=== PATIENT | male | born 1955 | race Caucasian/White ===

== ENCOUNTER → 2021-06-23 | Outpatient (CLI) | payer OTHER | LOC: ORTHO 08:22 → MERGE 08:28 → ORTHO 13:00 | PROVIDERS: ATTEND Orthopaedic Surgery | DX: M75.101 Unspecified rotator cuff tear or rupture of right shoulder, not specified as traumatic (principal); M75.102 Unspecified rotator cuff tear or rupture of left shoulder, not specified as traumatic | CPT/HCPCS: 99213 ==

== ENCOUNTER → 2021-06-23 | Outpatient (CLI) | payer OTHER ==
--- NOTE | 2021-06-23 08:55 | Diagnostic Imaging Report ---
EXAMINATION: Right shoulder radiographs, 3 views. Left shoulder radiographs, 3 views. COMPARISON: Left shoulder radiographs June 05, 2020. HISTORY: 66-year-old male, bilateral shoulder pain. FINDINGS: The humeral heads are normally aligned relative to the glenoid bilaterally. There is calcific attenuation adjacent to the superolateral aspect of the right humeral head consistent with calcific tendinitis/bursitis. The acromioclavicular joints are normally aligned. There is chondrocalcinosis. There is no identified acute fracture. There are mild right acromioclavicular degenerative changes without undersurface osteophyte. There is productive bone formation in the region of the coracoclavicular ligament attachments which may reflect sequela of remote prior injury. The glenohumeral joint spaces are grossly well preserved. IMPRESSION: 1. Calcific attenuation adjacent to the right superolateral humeral head compatible with calcific tendinitis/bursitis. 2. Mild right acromioclavicular degenerative changes without undersurface osteophytes. 3. Productive bone formation in the region of the coracoclavicular ligament attachments bilaterally which may relate to sequela of remote prior injury. There is no widening of either acromioclavicular joint. 4. Grossly unremarkable assessment of the glenohumeral joints. Dictated by: Dictated on workstation # [id number]
== END ==
LOC: ORTHO 08:23
PROVIDERS: ATTEND Orthopaedic Surgery
DX: M19.011 Primary osteoarthritis, right shoulder (principal); M25.512 Pain in left shoulder

== ENCOUNTER → 2021-06-30 | Outpatient (CLI) | payer OTHER ==
--- NOTE | 2021-06-30 11:39 | Diagnostic Imaging Report ---
EXAMINATION: Left shoulder MRI without contrast from 06/30/2021. TECHNIQUE: Multiplanar, multisequence non contrast-enhanced MRI of the left upper extremity was accomplished. INDICATION: Left shoulder pain due to years of wear and tear. FINDINGS: The subscapularis tendon is intact. The long head of the biceps tendon lies in the bicipital groove and appears intact as well. There is marked thinning of the supraspinatus and infraspinatus tendons with a focal full-thickness tear suspected along the posterior supraspinatus tendon, best seen on coronal sequences image #11. The focal tear demonstrates a gap measuring approximately 4 to 5 mm. Within the remaining predominantly articular-sided tears, bursal-sided fibers appear to be intact. There is no retraction. The biceps tendon anchor is intact. The labrum is poorly characterized without contrast but grossly intact. There is a small joint effusion. There is narrowing and spurring at the acromioclavicular joint. Muscle volume is fairly well maintained. Visualized axilla is unremarkable. IMPRESSION: 1. Predominantly articular-sided partial-thickness tears of the supraspinatus and infraspinatus tendons with a focal full-thickness extension suspected in the posterior aspect of the supraspinatus tendon. No significant retraction. 2. Subscapularis tendon and biceps tendon are intact with other findings as discussed above. Dictated by: Dictated on workstation # [id number]
== END ==
LOC: RAD 09:30
PROVIDERS: ATTEND Orthopaedic Surgery
DX: M75.102 Unspecified rotator cuff tear or rupture of left shoulder, not specified as traumatic (principal); M75.101 Unspecified rotator cuff tear or rupture of right shoulder, not specified as traumatic
CPT/HCPCS: 73221

== ENCOUNTER → 2021-07-09 | Outpatient (CLI) | payer OTHER | LOC: ORTHO 17:42 | PROVIDERS: ATTEND Orthopaedic Surgery | DX: M75.102 Unspecified rotator cuff tear or rupture of left shoulder, not specified as traumatic (principal) | CPT/HCPCS: 99213 ==

== ENCOUNTER → 2022-01-05 | Outpatient (CLI) | payer OTHER | LOC: ORTHO 08:09 | PROVIDERS: ATTEND Orthopaedic Surgery | DX: M75.102 Unspecified rotator cuff tear or rupture of left shoulder, not specified as traumatic (principal); E11.9 Type 2 diabetes mellitus without complications; E78.00 Pure hypercholesterolemia, unspecified | CPT/HCPCS: 99213 ==

== ENCOUNTER 2022-01-25 05:28 | Outpatient (CLI) | payer OTHER ==
[~2022-01-25] VITALS: Ht 180.3 cm; Wt 90.6 kg
[2022-01-25] MEDS ORDERED: ENAL20TA16 PO (14:42)
[2022-01-25] MEDS ORDERED: NF-GLIP2.5 PO (14:42)
[2022-01-25] MEDS ORDERED: ATOR10TA66 PO (14:42)
[2022-01-25] MEDS ORDERED: IBUP-1780 PO (14:42)
[2022-01-25] MEDS ORDERED: METF-399 PO (14:42)
[2022-01-25] MEDS ORDERED: GABA-486 PO (14:42)
[2022-01-25] MEDS ORDERED: CLN.2T PO (14:42)
[2022-01-25] MEDS ORDERED: HYDR25TA4 PO (14:42)
== END 2022-01-26 07:16 | disposition home or self-care (01) ==
LOC: PREOP 05:28
PROVIDERS: ATTEND Orthopaedic Surgery
DX: Z01.818 Encounter for other preprocedural examination (principal)

== ENCOUNTER → 2022-01-28 | Outpatient (CLI) | payer OTHER ==
[~2022-01-28] MED LIST: ATOR10TA66 PO; CLN.2T PO; ENAL20TA16 PO; GABA-486 PO; HYDR25TA4 PO; IBUP-1780 PO; METF-399 PO; NF-GLIP2.5 PO
== END ==
LOC: ORTHO 09:02
PROVIDERS: ATTEND Orthopaedic Surgery
DX: M75.102 Unspecified rotator cuff tear or rupture of left shoulder, not specified as traumatic (principal); E11.9 Type 2 diabetes mellitus without complications; E78.00 Pure hypercholesterolemia, unspecified; F17.200 Nicotine dependence, unspecified, uncomplicated
CPT/HCPCS: 99213

== ENCOUNTER 2022-03-01 05:29 | Outpatient (CLI) | payer OTHER ==
[~2022-03-01] VITALS: Ht 180.3 cm; Wt 91.8 kg
[2022-03-01] MEDS ORDERED: TADA5TAB4 PO (12:43)
== END 2022-03-01 13:39 | disposition home or self-care (01) ==
LOC: PREOP 05:29
PROVIDERS: ATTEND Orthopaedic Surgery
DX: Z01.818 Encounter for other preprocedural examination (principal)

== ENCOUNTER 2022-03-08 07:37 | Day surgery (SDC) | payer OTHER ==
[~2022-03-08] VITALS: Ht 180.3 cm; Wt 91.8 kg
[2022-03-08] VITALS (11 sets, daily range): BP systolic 146–173; BP diastolic 77–101
[~2022-03-08 07:37] MED LIST changes: +TADA5TAB4 PO
[2022-03-08] MEDS ORDERED: ceFAZolin INJECTION 2,000 MG in NS (IVPB) 50 ML IV ONE (08:00)
[2022-03-08] MEDS: LACTATED RINGERS 1,000 ML IV PRN ×2 (08:09→10:02)
[2022-03-08] MEDS ORDERED: EPINEPHrine INJECTION 1 MG/ML AMP ONE (08:37)
[2022-03-08] MEDS ORDERED: MIDAZOLAM 2 MG/2 ML (VERSED) VIAL ONE (08:42)
[2022-03-08] MEDS ORDERED: ROPIVACAINE 5MG/ML 30ML VIAL ONE (08:43)
[2022-03-08] MEDS ORDERED: LIDOCAINE PF 2% 5 ML (XYLOCAINE) VIAL ONE (08:43)
[2022-03-08] MEDS ORDERED: fentaNYL INJ 100 MCG/2 ML AMP ONE (09:12)
[2022-03-08] MEDS ORDERED: ONDANSETRON 4 MG/2 ML (SDV) Z0FRAN ONE (09:12)
[2022-03-08] MEDS ORDERED: ROCURONIUM 10 MG/ML 5 ML SYRINGE IV ONE (09:13)
[2022-03-08] MEDS ORDERED: proPOfol 200 MG/20 ML (DIPRIVAN) VIAL IV ONE (09:13)
[2022-03-08] MEDS ORDERED: NEOSTIGMINE 3 MG/3 ML VIAL ONE (11:30)
[2022-03-08] MEDS ORDERED: GLYCOPYRROLATE 0.2 MG/ML (ROBINUL) 2 ML VIAL ONE (11:30)
--- NOTE | 2022-03-08 11:30 | Operative Report - Ortho ---
Operative Report Surgeon (s)/[employer] Machine Operator Helper (s) Surgeon EFREN MARTIN MD [employer] Machine Operator Helper n/a Pre-Operative Diagnosis Left Rotator Cuff Tear Post-Operative Diagnosis same Operative Report Date of Procedure: Mar 08, 2022 Name of Procedure Performed: Left Shoulder Arthroscopy with Rotator Cuff Repair Description & Findings After obtaining informed consent and marking the patient in the preoperative holding area, patient received regional anesthesia. Patient did receive intravenous antibiotics. Patient was taken to the operating room. General anesthesia was induced and the patient was placed in the lateral decubitus position with the right side up. Right upper extremity was prepped and draped in the usual sterile fashion. Surgical timeout was taken. Posterior portal was established. Diagnostic glenohumeral arthroscopy was performed with the following findings: biceps tendon was intact, intact articular cartilage, no loose bodies in the axillary pouch, high grade partial thickness tear of the rotator cuff, intact labrum, and some degenerative change with osteophytic formation noted. Anterior portal was established and shaver was inserted. The undersurface of the cuff tear was debrided. Probe was inserted and the biceps was inspected and was intact. Marking suture was placed through the rotator cuff tear. Instruments were then taken up into the subacromial space. Lateral portal was established. Shaver was used to remove bursal tissue. Rotator cuff footprint was debrided to bleeding bone. Edge of the rotator cuff was debrided. Given the small width of the tear, a medial row anchor was placed. Limbs of the tape suture from the anchor were passed independently through the cuff using a needle suture passer. Suture tails were passed through and punched into a lateral socket. Tension as applied to the sutures and an anchor was deployed. Tails of the suture were cut. Rotator cuff repair was viewed from the posterior and lateral portals and demonstrated good approximation and compression to the footprint. Instruments were removed. Incisions were closed with 3-0 nylon sutures. Wounds were dressed with xeroform, 4x4s, ABD, and tape. Patient was placed in an abduction sling postoperatively. Anesthesia Type General plus regional Estimated Blood Loss minimal Specimen(s) collected/removed None EFREN MARTIN MD Mar 08, 2022 11:30
[2022-03-08] MEDS ORDERED: OXC5T PO (11:33)
[2022-03-08] MEDS ORDERED: SEVOFLURANE (ULTANE) 15 ML INHAL SOLN ONE (11:39)
[2022-03-08] MEDS ORDERED: ONDANSETRON 4 MG/2 ML (SDV) Z0FRAN IVP PRN (12:00)
[2022-03-08] MEDS ORDERED: morphine INJ 10 MG/ML 1ML (SYR OR VIAL) IVP ONE (12:00)
--- NOTE | 2022-03-08 12:03 | Anesthesia-General Post-Op ---
General Patient Condition Mental Status/LOC: Same as Preop Cardiovascular: Satisfactory Nausea/Vomiting: Absent Respiratory: Satisfactory Pain: Controlled Complications: Absent Post Op Complications Complications None Follow Up Care/Instructions Patient Instructions None needed. Anesthesia/Patient Condition Patient Condition Patient is doing well, no complaints, stable vital signs, no apparent adverse anesthesia problems. No complications reported per nursing. EFREN SOMMER CRNA Mar 08, 2022 12:03
== END 2022-03-08 14:00 | disposition home or self-care (01) ==
LOC: SDC 07:37
PROVIDERS: ATTEND Orthopaedic Surgery
DX: M75.112 Incomplete rotator cuff tear or rupture of left shoulder, not specified as traumatic (principal); F17.210 Nicotine dependence, cigarettes, uncomplicated
CPT/HCPCS: 82947; 87081

== ENCOUNTER → 2022-03-23 | Outpatient (CLI) | payer OTHER ==
[~2022-03-23] MED LIST changes: +OXC5T PO
== END ==
LOC: ORTHO 09:50
PROVIDERS: ATTEND Orthopaedic Surgery
DX: Z47.89 Encounter for other orthopedic aftercare (principal)

== ENCOUNTER → 2022-04-06 | Outpatient (CLI) | payer MEDICARE, OTHER | LOC: ORTHO 08:36 | PROVIDERS: ATTEND Orthopaedic Surgery | DX: Z47.89 Encounter for other orthopedic aftercare (principal); E11.9 Type 2 diabetes mellitus without complications; E78.00 Pure hypercholesterolemia, unspecified ==

== ENCOUNTER → 2022-05-06 | Outpatient (CLI) | payer MEDICARE | LOC: ORTHO 08:30 | PROVIDERS: ATTEND Orthopaedic Surgery | DX: Z47.89 Encounter for other orthopedic aftercare (principal) ==

== ENCOUNTER → 2022-06-03 | Outpatient (CLI) | payer MEDICARE ==
--- NOTE | 2022-06-03 08:57 | Diagnostic Imaging Report ---
INDICATION: Left elbow pain AP, oblique, and lateral views of the left elbow are obtained No overt fracture or acute bony abnormality seen. There is advanced degenerative change of the left elbow joint with joint space narrowing and osteophyte formation. There appears to be a small joint effusion. 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 No definite acute fracture. Dictated by: Dictated on workstation # [id number]
== END ==
LOC: ORTHO 08:07
PROVIDERS: ATTEND Orthopaedic Surgery
DX: M19.022 Primary osteoarthritis, left elbow (principal); M25.422 Effusion, left elbow
CPT/HCPCS: 73080